=== PATIENT | female | born 1990 | race Caucasian/White ===

== ENCOUNTER 2024-09-12 11:10 | Inpatient (IN) | payer OTHER ==
[2024-09-12 12:12] LABS: BASO % 0.3 % (0-2.0); EOS % 0.5 % (0-4.5); HEMATOCRIT 34.9 % (32.4-45.2); HEMOGLOBIN 11.8 GM/dL (10.7-15.3); LYMPH % 25.2 % (8-40); MCH 29.8 pg (25.7-33.7); MCHC 33.9 g/dl (32.0-36.0); MEAN PLT VOLUME 9.2 fl (7.5-11.1); MONO % 6.4 % (3.8-10.2); NEUT % 67.6 % (42.8-82.8); PLATELET COUNT 113 10^3/uL (134-434); RBC 3.96 M/mm3 (3.60-5.2); RDW 15.1 % (11.6-15.6); WHITE BLOOD COUNT 6.1 K/mm3 (4.0-10.0)
[2024-09-12 12:20] LABS: INR 0.94 (0.83-1.09); PROTHROMBIN TIME (PATIENT) 10.3 SEC (9.7-13.0)
[2024-09-12 12:33] LABS: POTASSIUM 3.8 mmol/L (3.5-5.1)
[2024-09-12 12:35] LABS: BLOOD UREA NITROGEN 8.6 mg/dL (7-18)
[2024-09-12 12:39] VITALS: BMI 32.8
[2024-09-12 12:39] LABS: CREATININE 0.6 mg/dL (0.55-1.3)
[2024-09-12 13:35] LABS: HIV INTERPRETATION NEGATIVE (NEGATIVE)
[2024-09-12] MEDS: OXYTOCIN 30 UNITS in 0.9% NS 30 UNIT/500 ML INFUS.BAG IVPB SCH (13:54)
[2024-09-12] MEDS: LACTATED RINGERS SOLUTION 1,000 ML IV SCH (14:34)
[2024-09-12] MEDS: DINOPROSTONE 10 MG VAGINAL SUPPOSITORY VG ONE (14:46)
[2024-09-12] MEDS ORDERED: AMPICILLIN SODIUM 2 GM VIAL ONE (15:03)
[2024-09-12] MEDS: AMPICILLIN - 2 GM in SODIUM CHLORIDE 100 ML IVPB ONE (15:07)
[2024-09-12] MEDS ORDERED: AMPICILLIN SODIUM 1 GM VIAL ONE ×2 (18:45→23:09)
[2024-09-12] MEDS: AMPICILLIN - 1 GM in SODIUM CHLORIDE 100 ML IVPB SCH (18:54)
[2024-09-12] MEDS: LACTATED RINGERS SOLUTION 500 ML IV ONE (19:45)
[2024-09-12] MEDS ORDERED: FENTANYL/BUPIVACAINE/NS/PF - PCEA - 50 ML DISP.SYRIN EP ONE ×2 (21:17→23:41)
[2024-09-12] MEDS: FENTANYL/BUPIVACAINE/NS/PF - PCEA - 50 ML DISP.SYRIN EP SCH (21:30)
[2024-09-12] MEDS ORDERED: NALOXONE HCL 0.4 MG/ML VIAL IVPUSH PRN (22:03)
[2024-09-12] MEDS ORDERED: SODIUM CHLORIDE 100 ML IVPB ONE (23:09)
[2024-09-12] MEDS ORDERED: FENTANYL CITRATE/PF 50 MCG/ML VIAL ONE (23:11)
[2024-09-12] MEDS ORDERED: LIDOCAINE HCL/PF 2% SDV 5ML VIAL ONE (23:11)
[2024-09-13] MEDS ORDERED: FENTANYL/BUPIVACAINE/NS/PF - PCEA - 50 ML DISP.SYRIN EP ONE (01:51)
[2024-09-13] MEDS ORDERED: AMPICILLIN SODIUM 1 GM VIAL ONE (03:20)
[2024-09-13] MEDS ORDERED: SODIUM CHLORIDE 100 ML IVPB ONE (03:20)
[2024-09-13] MEDS ORDERED: LIDOCAINE HCL 1% PRESERVATIVE FREE - 30ML VIAL ONE (03:36)
[2024-09-13] MEDS ORDERED: BENZOCAINE 20% 57 GM BOTTLE TP PRN (03:38)
[2024-09-13] MEDS ORDERED: BENZOCAINE 28 GM HEMORRHOIDAL OINTMENT TP PRN (03:38)
[2024-09-13] MEDS ORDERED: BISACODYL 10 MG SUPP.RECT RC PRN (03:38)
[2024-09-13] MEDS ORDERED: WITCH HAZEL 50% (TUCKS) 40 PAD/JAR PAD TP PRN (03:38)
[2024-09-13] MEDS: OXYTOCIN 20 UNITS in 0.9% NS 20 UNIT/1,000 ML INFUS.BAG IV SCH ×2 (04:10→08:15)
[2024-09-13] MEDS ORDERED: ACETAMINOPHEN 325 MG TABLET (FP) ONE (06:32)
[2024-09-13] MEDS: ACETAMINOPHEN 325 MG TABLET (FP) PO PRN (06:35)
[2024-09-13] MEDS: METHYLERGONOVINE MALEATE 0.2 MG/1 ML AMP IM PRN (06:45)
[2024-09-13] MEDS ORDERED: oxyCODONE HCL 5 MG TABLET ONE (07:45)
[2024-09-13] MEDS ORDERED: OXYTOCIN 20 UNITS in 0.9% NS 20 UNIT/1,000 ML INFUS.BAG IV ONE (07:45)
[2024-09-13] MEDS: oxyCODONE HCL 5 MG TABLET PO PRN (07:49)
[2024-09-13] MEDS ORDERED: MISOPROSTOL 100 MCG TABLET ONE (07:53)
[2024-09-13] MEDS: PROMETHAZINE HCL 25 MG/1 ML VIAL IVPB ONE (07:56)
[2024-09-13] MEDS: BUTORPHANOL TARTRATE 1 MG/ML VIAL IVPB ONE (07:57)
[2024-09-13] MEDS: OXYTOCIN 30 UNITS in 0.9% NS 30 UNIT/500 ML INFUS.BAG IVPB SCH (07:57)
[2024-09-13] MEDS ORDERED: MISOPROSTOL 200 MCG TABLET ONE (08:17)
[2024-09-13] MEDS: FERROUS SO4 325 MG TABLET (FP) PO SCH (10:32)
[2024-09-13] MEDS: PRENATAL VITAMINS W/ FOLIC ACID TABLET (FP) PO SCH (10:32)
[2024-09-13] MEDS: IBUPROFEN 600 MG TABLET (FP) PO PRN (10:32)
[2024-09-13] MEDS: ZOLPIDEM TARTRATE 5 MG TABLET PO ONE (22:16)
[2024-09-14 08:12] LABS: BASO % 0.4 % (0-2.0); EOS % 0.7 % (0-4.5); HEMATOCRIT 27.4 % (32.4-45.2); HEMOGLOBIN 9.4 GM/dL (10.7-15.3); LYMPH % 24.5 % (8-40); MCH 30.1 pg (25.7-33.7); MCHC 34.2 g/dl (32.0-36.0); MEAN CELL VOLUME 87.9 fl (80-96); MEAN PLT VOLUME 8.9 fl (7.5-11.1); MONO % 4.6 % (3.8-10.2); NEUT % 69.8 % (42.8-82.8); PLATELET COUNT 104 10^3/uL (134-434); RBC 3.12 M/mm3 (3.60-5.2); WHITE BLOOD COUNT 7.8 K/mm3 (4.0-10.0)
[2024-09-14] MEDS: FLU VACCINE (FLULAVAL) PF 45 MCG/0.5 ML SYRINGE 2024-2025 IM ONE (09:36)
[2024-09-14] MEDS: DIPHTH,PERTUSS(ACELL),TET 0.5 ML DISP.SYRIN IM ONE (09:37)
[2024-09-14 21:53] VITALS: RESP 17
[2024-09-14] MEDS: ZOLPIDEM TARTRATE 5 MG TABLET PO ONE (21:57)
[2024-09-14] MEDS: SENNOSIDES/DOCUSATE COMBO (SENNA PLUS) TABLET (UD) PO PRN (21:57)
[2024-09-15 08:29] VITALS: BP 124/77; PULSE 94; TEMP 98.3
== END 2024-09-15 13:50 | disposition home or self-care (01) | DRG 560 ==
LOC: JLDR 11:10 → J3W 09-13 10:20
PROVIDERS: ADMIT Obstetrics & Gynecology; ATTEND Obstetrics & Gynecology
PROC: 10E0XZZ Delivery of Products of Conception, External Approach (ICD-10-PCS; principal; 2024-09-13)
PROC: 0HQ9XZZ Repair Perineum Skin, External Approach (ICD-10-PCS; 2024-09-13)
DX: O48.0 Post-term pregnancy (principal); O70.0 First degree perineal laceration during delivery; Z3A.41 41 weeks gestation of pregnancy; Z37.0 Single live birth
CPT/HCPCS: 36415; 59409; 80048; 85025; 85461; 85610; 85730; 86780; 86803; 86850; 86900; 86901; 87389; 90656; 90715; G0008